=== PATIENT | female | born 1970 | race Caucasian/White ===

== ENCOUNTER 2017-04-30 15:12 | Inpatient (IN) | payer MEDICAID ==
[~2017-04-30] VITALS: Ht 152.4 cm; Wt 137.6 kg
[2017-04-30 15:23] VITALS: Ht 152.4 cm; Wt 137.6 kg
[2017-04-30 18:00] LABS: BASOPHIL % 0.5 % (0-2); PLATELET COUNT 284 x10^3mcL (130-400)
[2017-04-30 18:09] LABS: RED CELL DISTRIBUTION WIDTH 15.5 % (11.5-14.5)
[2017-04-30 18:11] LABS: CALCIUM 8.7 mg/dL (8.5-10.1); CARBON DIOXIDE 27.7 mmol/L (21-32); CHLORIDE SERUM 100 mmol/L (98-107); CREATININE SERUM 0.6 mg/dL (0.6-1.0); GFR1 > 60 mL/min; GLUCOSE SERUM 151 mg/dL (74-106); POTASSIUM SERUM 4.1 mmol/L (3.5-5.1); SODIUM SERUM 135 mmol/L (136-145)
[2017-04-30 18:16] LABS: ALBUMIN 3.5 g/dL (3.4-5.0); ALKALINE PHOSPHATASE 64 U/L (46-116); ALT/SGPT 41 U/L (14-59); AST/SGOT 30 U/L (15-37); BILIRUBIN TOTAL 0.21 mg/dL (0.20-1.00); TOTAL PROTEIN, SERUM 7.8 g/dL (6.4-8.2)
[2017-04-30] MEDS ORDERED: METFORMIN HCL500 MG PO (19:45)
[2017-04-30] MEDS ORDERED: METFORMIN HCL1000 MG PO ×2 (19:45→19:46)
[2017-04-30 21:46] VITALS: BP 132/67
[2017-04-30 21:50] LABS: MAGNESIUM 2.1 mg/dL (1.8-2.4); PHOSPHOROUS 3.5 mg/dL (2.5-4.9)
[2017-04-30 21:51] LABS: CHOLESTEROL/HDL RATIO 12.8
[2017-04-30 21:56] LABS: T3 TOTAL 1.1 ng/mL
[2017-04-30 22:00] LABS: FREE T4 1.03 ng/dL (0.76-1.46)
[2017-04-30 22:19] LABS: microscopic required? NO
[2017-04-30 22:37] LABS: urine erythrocyte NEGATIVE (NEGATIVE)
[2017-04-30 22:39] LABS: AMPHETAMINE QUAL UR NONE DETECTED (NEG <=1000)
[2017-04-30 23:07] VITALS: BP 132/67
[2017-05-01 06:21] VITALS: BP 122/71
[2017-05-01 09:43] LABS: BASOPHIL % 0.7 % (0-2); PLATELET COUNT 230 x10^3mcL (130-400); RED CELL DISTRIBUTION WIDTH 15.4 % (11.5-14.5)
[2017-05-01 10:17] LABS: CALCIUM 7.8 mg/dL (8.5-10.1); CARBON DIOXIDE 25.9 mmol/L (21-32); CHLORIDE SERUM 100 mmol/L (98-107); CREATININE SERUM 0.6 mg/dL (0.6-1.0); GFR1 > 60 mL/min; GLUCOSE SERUM 246 mg/dL (74-106); MAGNESIUM 1.9 mg/dL (1.8-2.4); PHOSPHOROUS 3.4 mg/dL (2.5-4.9); POTASSIUM SERUM 3.7 mmol/L (3.5-5.1); SODIUM SERUM 135 mmol/L (136-145)
[2017-05-01 10:34] VITALS: BP 122/67
[2017-05-01 14:32] VITALS: BP 132/82
[2017-05-01] MEDS ORDERED: ATORVASTATIN CA40 M1 PO (16:19)
[2017-05-01] MEDS ORDERED: NITROSTAT0.4 MG SL (16:27)
[2017-05-01 16:47] VITALS: BP 132/82
[2017-05-01 17:02] VITALS: BP 134/72
== END 2017-05-01 17:22 | disposition home or self-care (01) | DRG 203 ==
LOC: ED 15:12 → DU 19:37
PROVIDERS: Student in an Organized Health Care Education/Training Program
DX: M94.0 Chondrocostal junction syndrome [Tietze] (principal); E43 Unspecified severe protein-calorie malnutrition; E87.1 Hypo-osmolality and hyponatremia; E11.65 Type 2 diabetes mellitus with hyperglycemia; E78.5 Hyperlipidemia, unspecified; D50.9 Iron deficiency anemia, unspecified; E66.01 Morbid (severe) obesity due to excess calories; Z68.43 Body mass index [BMI] 50.0-59.9, adult; Z87.891 Personal history of nicotine dependence; Z98.51 Tubal ligation status; Z78.0 Asymptomatic menopausal state; Z79.84 Long term (current) use of oral hypoglycemic drugs
CPT/HCPCS: 82962; 83880; 84439; J7030; Q0092; Q0162